=== PATIENT | male | born 1960 | race Caucasian/White ===

== ENCOUNTER 2019-11-02 14:48 | Emergency (ER) | payer SELFPAY ==
[~2019-11-02] VITALS: Wt 137.9 kg
[~2019-11-02 14:48] MED LIST: CIPROFLOXACIN500 MG PO; DAYPRO600 M1 PO; DO NOT PROFILE T1 EA; HYDROCODONE BIT1 T11 PO; ROBAXIN750 MG PO; ULTRAM50 MG PO
[2019-11-02 15:43] LABS: BASO # 0.1 10*3/uL (0.0-0.1); BASO % 0.4 % (0.0-1.0); EOS % 0.3 % (1.0-4.0); LYMPH # 1.2 10*3/uL (1.3-4.4); LYMPH % 8.8 % (27.0-41.0); MEAN CORPUSCULAR HGB CONC 34.4 g/dl (33.0-37.0); MEAN PLATELET VOLUME 10.7 fl (9.6-12.3); MONO # 1.1 10*3/uL (0.1-1.0); MONO % 7.8 % (3.0-9.0); NEUT # 11.4 10*3/uL (2.3-7.9); NEUT % 81.1 % (47.0-73.0); PLATELET COUNT AUTOMATED 215 10*3/uL (130-400); RED BLOOD COUNT 5.59 10*6/uL (4.50-5.90); RED CELL DISTRI WIDTH 12.2 % (0-14.5)
[2019-11-02 15:56] LABS: ACT PARTIAL THROMBO TIME 21.9 SECONDS (20.0-32.1)
[2019-11-02 16:08] LABS: ALBUMIN 3.5 gm/dl (3.1-4.5); CREATININE 1.96 mg/dL (0.70-1.30); POTASSIUM 3.9 mmol/L (3.5-5.1); TOTAL PROTEIN 8.1 gm/dL (6.4-8.2); TROPONIN I 0.021 ng/ml (<0.045)
[2019-11-02 16:09] LABS: ETHYL ALCOHOL < 3.0 mg/dl (<3)
[2019-11-02 16:10] LABS: ACETAMINOPHEN (TYLENOL) < 5.0 ug/ml (10-30)
[2019-11-02 16:44] LABS: BILIRUBIN NEGATIVE (NEGATIVE); BLOOD 2+ (NEGATIVE); CLARITY CLEAR (CLEAR); COLOR YELLOW (YELLOW); GLUCOSE 3+ (NEGATIVE); KETONE NEGATIVE (NEGATIVE); LEUKO ESTERASE NEGATIVE (NEGATIVE); NITRITE NEGATIVE (NEGATIVE); SPECIFIC GRAVITY 1.015 (1.005-1.030); UROBILINOGEN 0.2 E.U./dl (0.2-1.0)
[2019-11-02 16:45] LABS: MUCOUS TRACE; WBC 0-2 wbc/hpf (0-5)
[2019-11-02 16:48] LABS: URINE AMPHETAMINES < 1000 (1000ng/ml); URINE BARBITURATES < 200 (200ng/ml); URINE BENZODIAZEPINES > 200 (200ng/ml); URINE CANNABINOIDS (THC) > 50 (50ng/ml); URINE COCAINE < 300 (300ng/ml); URINE METHADONE < 300 (300ng/ml); URINE OPIATES < 300 (300ng/ml)
[2019-11-02 16:50] LABS: URINE PHENCYCLIDINE < 25 (25ng/ml)
[2019-11-02 18:18] VITALS: BP 164/93
[2019-11-02 18:27] LABS: ABG BASE EXCESS -14.9 mmol/L (-2.0-2.0); ARTERIAL BLOOD GAS PH 7.068 (7.35-7.45)
== END 2019-11-02 18:58 | disposition short-term general hospital (02) ==
LOC: ED 14:48
PROVIDERS: Emergency Medicine
DX: I46.9 Cardiac arrest, cause unspecified (principal); G40.901 Epilepsy, unspecified, not intractable, with status epilepticus; I10 Essential (primary) hypertension

== ENCOUNTER 2020-10-17 20:33 | Emergency (ER) | payer SELFPAY ==
[~2020-10-17] VITALS: Ht 210.8 cm; Wt 137.0 kg
[2020-10-17 20:51] VITALS: BP 178/88
[2020-10-17 21:14] LABS: BASO % 0.5 % (0.0-1.0); EOS # 0.1 10*3/uL (0.0-0.4); HEMATOCRIT 42.7 % (42.0-52.0); LYMPH # 1.9 10*3/uL (1.3-4.4); LYMPH % 21.1 % (27.0-41.0); MEAN CELL VOLUME 95.1 fl (80.0-94.0); MEAN CORPUSCULAR HGB 33.2 pg (27.0-31.0); MEAN CORPUSCULAR HGB CONC 34.9 g/dl (33.0-37.0); MEAN PLATELET VOLUME 11.5 fl (9.6-12.3); MONO # 0.9 10*3/uL (0.1-1.0); MONO % 10.7 % (3.0-9.0); NEUT # 5.8 10*3/uL (2.3-7.9); NEUT % 66.1 % (47.0-73.0); PLATELET COUNT AUTOMATED 254 10*3/uL (130-400); RED BLOOD COUNT 4.49 10*6/uL (4.50-5.90); RED CELL DISTRI WIDTH 11.8 % (0-14.5); WHITE BLOOD COUNT 8.8 10*3/uL (4.8-10.8)
[2020-10-17 21:29] LABS: ALBUMIN 3.4 gm/dl (3.1-4.5); CREATININE 1.47 mg/dL (0.70-1.30); POTASSIUM 4.6 mmol/L (3.5-5.1); TOTAL PROTEIN 7.9 gm/dL (6.4-8.2)
== END 2020-10-18 00:25 | disposition home or self-care (01) ==
LOC: ED 20:33
PROVIDERS: Internal Medicine
DX: E11.65 Type 2 diabetes mellitus with hyperglycemia (principal); E87.8 Other disorders of electrolyte and fluid balance, not elsewhere classified; I12.9 Hypertensive chronic kidney disease with stage 1 through stage 4 chronic kidney disease, or unspecified chronic kidney disease; E11.22 Type 2 diabetes mellitus with diabetic chronic kidney disease; N18.31 Chronic kidney disease, stage 3a

== ENCOUNTER 2024-06-09 15:24 | Emergency (ER) | payer BC ==
[~2024-06-09] VITALS: Ht 180.3 cm; Wt 144.7 kg
[2024-06-09 16:00] VITALS: BP 137/78
[2024-06-09] MEDS ORDERED: ROSUVASTATIN CA10 MG PO (16:01)
[2024-06-09] MEDS ORDERED: CARVEDILOL6.25 MG PO (16:02)
[2024-06-09] MEDS ORDERED: Zestril,Prinivi40 MG PO (16:02)
[2024-06-09] MEDS ORDERED: METFORMIN HYD1000 MG PO (16:02)
[2024-06-09 17:02] LABS: VENOUS BLOOD GAS O2 SAT 95.4 % (60.0-85.0)
[2024-06-09 17:03] LABS: BASO % 0.5 % (0.0-1.0); EOS % 0.5 % (1.0-4.0); HEMATOCRIT 43.1 % (42.0-52.0); MEAN CELL VOLUME 93.9 fl (80.0-94.0); MEAN CORPUSCULAR HGB 31.6 pg (27.0-31.0); MEAN CORPUSCULAR HGB CONC 33.6 g/dl (33.0-37.0); MEAN PLATELET VOLUME 10.5 fl (9.6-12.3); MONO # 1.1 10*3/uL (0.1-1.0); MONO % 17.6 % (3.0-9.0); NEUT # 3.4 10*3/uL (2.3-7.9); NEUT % 55.3 % (47.0-73.0); PLATELET COUNT AUTOMATED 200 10*3/uL (130-400); RED BLOOD COUNT 4.59 10*6/uL (4.50-5.90); RED CELL DISTRI WIDTH 12.5 % (0-14.5); WHITE BLOOD COUNT 6.2 10*3/uL (4.8-10.8)
[2024-06-09 17:13] LABS: ACT PARTIAL THROMBO TIME 29.9 SECONDS (20.0-32.1)
[2024-06-09 17:40] LABS: POTASSIUM 4.5 mmol/L (3.4-5.1); TOTAL PROTEIN 7.8 gm/dL (6.0-8.0)
== END 2024-06-09 17:55 | disposition left against medical advice (07) ==
LOC: ED 15:24
PROVIDERS: Internal Medicine
DX: E11.65 Type 2 diabetes mellitus with hyperglycemia (principal); I10 Essential (primary) hypertension; E78.5 Hyperlipidemia, unspecified; Z79.84 Long term (current) use of oral hypoglycemic drugs; Z79.899 Other long term (current) drug therapy; Z98.890 Other specified postprocedural states; Z53.29 Procedure and treatment not carried out because of patient's decision for other reasons

== ENCOUNTER → 2024-08-24 | Day surgery (SDC) | payer BC ==
[~2024-08-24] VITALS: Ht 180.3 cm; Wt 147.4 kg
[~2024-08-24] MED LIST changes: +CARVEDILOL6.25 MG PO; +Lactated Ringer's Solution 500 ML IV ONE; +Lidocaine Hydrochloride 2% 5 ML SDV IV ONE; +METFORMIN HYD1000 MG PO; +PROPOFOL 200 MG/20 ML VIAL IV ONE; +ROSUVASTATIN CA10 MG PO; +Zestril,Prinivi40 MG PO
[2024-08-24 07:20] VITALS: BP 160/71
[2024-08-24 08:53] VITALS: BP 95/56
[2024-08-24 09:08] VITALS: BP 104/56
[2024-08-24 09:21] VITALS: BP 111/50
== END | disposition home or self-care (01) ==
LOC: SDC 08-21 11:00
PROVIDERS: ATTEND Surgery
DX: Z12.11 Encounter for screening for malignant neoplasm of colon (principal); D12.3 Benign neoplasm of transverse colon; D12.4 Benign neoplasm of descending colon; K63.5 Polyp of colon; K64.8 Other hemorrhoids; K57.30 Diverticulosis of large intestine without perforation or abscess without bleeding; I12.9 Hypertensive chronic kidney disease with stage 1 through stage 4 chronic kidney disease, or unspecified chronic kidney disease; E11.22 Type 2 diabetes mellitus with diabetic chronic kidney disease; N18.31 Chronic kidney disease, stage 3a; F10.90 Alcohol use, unspecified, uncomplicated; F12.90 Cannabis use, unspecified, uncomplicated; Z98.890 Other specified postprocedural states; Z79.82 Long term (current) use of aspirin; Z79.84 Long term (current) use of oral hypoglycemic drugs; Z79.899 Other long term (current) drug therapy